=== PATIENT | female | born 1950 | race Hispanic/Latino ===

== ENCOUNTER 2017-12-30 19:53 | Emergency (ER) | payer OTHER ==
[2017-12-30] MEDS ORDERED: IBUPROFEN 600 MG TABLET ONE (20:06)
== END 2017-12-30 21:10 | disposition home or self-care (01) ==
LOC: EDH 19:53
DX: S80.01XA Contusion of right knee, initial encounter (principal); E11.9 Type 2 diabetes mellitus without complications; E78.5 Hyperlipidemia, unspecified; I10 Essential (primary) hypertension; Z90.49 Acquired absence of other specified parts of digestive tract; Z90.710 Acquired absence of both cervix and uterus; Z88.6 Allergy status to analgesic agent; W18.39XA Other fall on same level, initial encounter; Y93.89 Activity, other specified; Y92.89 Other specified places as the place of occurrence of the external cause; Y99.8 Other external cause status
CPT/HCPCS: 73562

== ENCOUNTER 2019-01-24 15:00 | Inpatient (IN) | payer OTHER ==
[~2019-01-24] VITALS: Ht 152.4 cm; Wt 79.8 kg
[2019-01-24 17:08] VITALS: BP 145/76
[2019-01-24 17:15] LABS: APPEARANCE,URINE Clear (CLEAR); BILIRUBIN,URINE Negative (NEGATIVE); COLOR,URINE Yellow (YELLOW); GLUCOSE, URINE (UA) Negative (NEGATIVE); KETONES,URINE Negative (NEGATIVE); LEUKOCYTE ESTERASE ,URINE Small (NEGATIVE); NITRATE,URINE Negative (NEGATIVE); OCCULT BLOOD,URINE Negative (NEGATIVE); PROTEIN,URINE Negative (NEGATIVE)
[2019-01-24] MEDS ORDERED: FLUT16H NASAL (17:33)
[2019-01-24] MEDS ORDERED: MONT10TA21 PO (17:33)
[2019-01-24] MEDS ORDERED: AMLO5TAB9 PO (17:33)
[2019-01-24] MEDS ORDERED: PANT40TA25 PO (17:33)
[2019-01-24] MEDS ORDERED: INSU300I SQ (17:33)
[2019-01-24] MEDS ORDERED: LISI-613 PO (17:33)
[2019-01-24] MEDS ORDERED: GLIP-196 PO (17:33)
[2019-01-24] MEDS ORDERED: FENO54TA6 PO (17:33)
[2019-01-24 17:40] LABS: BACTERIA,URINE Rare /HPF (None Seen); RBC,URINE 0-1 /HPF (0-1)
[2019-01-24 17:41] LABS: SQUAMOUS EPITHELIAL CELL,UR Few /HPF (0-2)
--- NOTE | 2019-01-24 19:38 | NUR ---
UA INFORMED DR. CORREA OF ABNORMAL UA. ORDERS RECEIVED TO HAVE PT RECEIVE ANCEF IN AM ALREADY ORDERED.
[2019-01-25] VITALS (19 sets, daily range): BP systolic 114–150; BP diastolic 60–87
--- NOTE | 2019-01-25 09:20 | NUR ---
POTENTIAL FOR INFECTION: NO SHAVING NEEDED TO RIGHT SHOULDER / UPPER ARM VOICED PER LI MCGILL. WIPED RIGHT SHOULDER / UPPER ARM WITH MARIO: 2% CHLORHEXIDINE GLUCONATE CLOTH PATIENTS PRE-OP SKIN PREP.
[2019-01-25] MEDS ORDERED: CEFAZOLIN SODIUM 1 GM VIAL ONE ×2 (10:20→17:06)
[2019-01-25] MEDS ORDERED: SODIUM CHLORIDE 0.9% 1000ML 1,000 ML IV ONE (10:21)
[2019-01-25] MEDS: CEFAZOLIN SODIUM 1 GM VIAL IVP ONE ×2 (10:30→16:45)
[2019-01-25] MEDS ORDERED: METF-446 PO (11:14)
[2019-01-25] MEDS ORDERED: MIDAZOLAM HCL 1 MG/ML 2ML VIAL ONE ×2 (14:59→16:05)
[2019-01-25] MEDS ORDERED: ACETAMINOPHEN EXTRA STRENGTH 500 MG TABLET ONE (15:01)
[2019-01-25] MEDS ORDERED: METOCLOPRAMIDE 10 MG/2 ML VIAL ONE (15:01)
[2019-01-25] MEDS ORDERED: CELECOXIB 200 MG CAP ONE (15:02)
[2019-01-25] MEDS ORDERED: KETOROLAC TROMETHAMINE 15MG/ML ONE (15:02)
[2019-01-25] MEDS ORDERED: OXYCODONE HCL 10 MG TAB.SR.12H PO ONE (15:03)
[2019-01-25] MEDS ORDERED: ONDANSETRON HCL 4 MG/2 ML VIAL ONE (16:05)
[2019-01-25] MEDS ORDERED: PROPOFOL 10 MG/ML 20ML VIAL IV ONE (16:05)
[2019-01-25] MEDS ORDERED: DEXAMETHASONE SOD PHOSPHATE 10MG/ML 1ML VIAL ONE (16:05)
[2019-01-25] MEDS ORDERED: LIDOCAINE PF 2% 5ML ABBOJECT ONE (16:05)
[2019-01-25] MEDS ORDERED: ROCURONIUM 10MG/1ML SYR 10 MG/ML ML ONE (16:06)
[2019-01-25] MEDS ORDERED: FENTANYL CITRATE PF 50 MCG/1 ML 2ML VIAL ONE ×2 (16:06→17:25)
[2019-01-25] MEDS ORDERED: ROPIVACAINE 0.5% 5MG/ML 30ML IJ ONE (16:10)
[2019-01-25] MEDS ORDERED: EPHEDRINE SULFATE 50 MG/ML AMPULE ONE (16:41)
[2019-01-25] MEDS: TRANEXAMIC ACID 1000MG/10ML IV ONE ×2 (17:00→19:45)
[2019-01-25] MEDS ORDERED: GLYCOPYRROLATE 1 MG/5 ML SYRINGE ONE (19:11)
[2019-01-25] MEDS ORDERED: NEOSTIGMINE 5MG/5ML SYR IV ONE (19:12)
[2019-01-25] MEDS ORDERED: POTASSIUM CHLORIDE 20 MEQ ERTAB PO PRN (19:15)
[2019-01-25] MEDS ORDERED: FE FUMARATE/FA/MV, MIN COMB#15 1 TAB PO PRN (19:15)
[2019-01-25] MEDS ORDERED: TRAMADOL HCL 50 MG TABLET PO PRN (19:15)
[2019-01-25] MEDS ORDERED: POTASSIUM CHLORIDE 20MEQ/100ML 100 ML IV PRN (19:15)
[2019-01-25] MEDS ORDERED: DiphenhydrAMINE HCL 50 MG/ML VIAL IVP PRN (19:15)
[2019-01-25] MEDS: ACETAMINOPHEN EXTRA STRENGTH 500 MG TABLET PO SCH (19:15)
[2019-01-25] MEDS ORDERED: TEMAZEPAM 15 MG CAPSULE PO PRN (19:15)
[2019-01-25] MEDS ORDERED: LIDOCAINE HCL-MPF 1% 2ML VIAL IVP PRN (19:15)
[2019-01-25] MEDS ORDERED: POTASSIUM CHLORIDE 10% ELIXIR 20 MEQ/15 ML UDCUP PO PRN (19:15)
[2019-01-25] MEDS ORDERED: OXYCODONE HCL 5 MG TAB PO PRN (19:15)
[2019-01-25] MEDS: PREGABALIN 25 MG CAP PO SCH (21:00)
[2019-01-25] MEDS: FAMOTIDINE 20MG TAB 20 MG TAB PO SCH (21:00)
[2019-01-25] MEDS: CELECOXIB 200 MG CAP PO SCH (21:00)
[2019-01-25] MEDS: ASPIRIN 325 MG TABLET PO SCH (21:00)
[2019-01-25] MEDS: ONDANSETRON HCL 4 MG/2 ML VIAL IVP PRN (22:10)
--- NOTE | 2019-01-25 22:10 | NUR ---
nausea c/o nausea, no vomiting zofran 4 mg ivp given slowly, tolerated well
--- NOTE | 2019-01-25 23:00 | NUR ---
med effect nausea subsiding, continue with ivf as ordered, voiding per bedpan clear yellow urine
[2019-01-26] VITALS (8 sets, daily range): BP systolic 103–126; BP diastolic 55–87
[2019-01-26] MEDS: CEFAZOLIN SODIUM 1 GM VIAL IVP SCH ×2 (00:20→09:45)
[2019-01-26] MEDS: SODIUM CHLORIDE 0.9% 1000ML 1,000 ML IV SCH ×3 (00:21→15:11)
[2019-01-26] MEDS: ACETAMINOPHEN EXTRA STRENGTH 500 MG TABLET PO SCH ×3 (04:26→20:10)
[2019-01-26 05:14] LABS: HEMATOCRIT 35.3 % (36-48); MEAN CORPUSCULAR HEMOGLOBIN 29.1 pg (27.0-33.0); MEAN CORPUSCULAR HGB CONC 33.7 g/dL (32.0-36.0); MEAN CORPUSCULAR VOLUME 86.3 fL (79-99); NUCLEATED RED BLOOD CELLS 0.1 % (0.0-0.19); PLATELET COUNT (AUTO) 192 K/uL (130-400); RED BLOOD CELL COUNT(AUTO) 4.09 MIL/uL (4.00-5.50); RED CELL DISTRIBUTION WIDTH 13.6 % (11.0-15.5); WHITE BLOOD COUNT (AUTO) 10.1 K/uL (4.8-10.8)
[2019-01-26 05:24] LABS: CREATININE 0.8 mg/dL (0.5-1.5)
[2019-01-26] MEDS: INSULIN HUMULIN R 100 UNIT/ML 3ML SQ SCH ×4 (06:28→20:11)
[2019-01-26] MEDS: INSULIN GLARGINE 100 UNITS/ML 10 ML VIAL SQ SCH (09:29)
[2019-01-26] MEDS: ASPIRIN 325 MG TABLET PO SCH ×2 (09:30→20:10)
[2019-01-26] MEDS: CELECOXIB 200 MG CAP PO SCH ×2 (09:30→20:11)
[2019-01-26] MEDS: PREGABALIN 25 MG CAP PO SCH ×2 (09:30→20:10)
[2019-01-26] MEDS: PANTOPRAZOLE SODIUM 40 MG TABLET.DR PO SCH (09:32)
[2019-01-26] MEDS: LISINOPRIL 20 MG TABLET PO SCH (09:33)
[2019-01-26] MEDS: FAMOTIDINE 20MG TAB 20 MG TAB PO SCH ×2 (09:33→20:10)
[2019-01-26] MEDS: GLIPIZIDE XL 10MG TAB PO SCH (09:33)
[2019-01-26] MEDS ORDERED: CEFAZOLIN SODIUM 1 GM VIAL ONE (09:36)
[2019-01-26] MEDS: OXYCODONE HCL 5 MG TAB PO PRN ×2 (09:46→17:29)
[2019-01-26] MEDS: FLUTICASONE PROPIONATE 50MCG/SPRAY 16 GM BOTTLE EN SCH (10:08)
[2019-01-26] MEDS: POLYETHYLENE GLYCOL 3350 17 GM POWD.PACK PO SCH (12:14)
[2019-01-26] MEDS: CALCIUM CARBONATE 500 MG TABLET PO PRN ×2 (12:15→21:43)
--- NOTE | 2019-01-26 13:00 | NUR ---
INITIAL AND REFERRAL MET W PT AND JULES- PT UP FOR PTX SESSION, S/P SHOULDER SURGERY. LIVES W SPOUSE, PREVIOUSLY INDEPENDENT,NO DME, PLAN IS FOR , KATJA SIGNED FOR [facility] ORDERED, WILL SEND REFERRAL Addendum: 01/26/19 at 1637 by TAY CONTRERAS RN Amended: Links added.
--- NOTE | 2019-01-26 16:37 | NUR ---
NOT IN NETWORK W [facility] REFERRAL SENT TO [facility], DR. CORREA ADVISED. Addendum: 01/26/19 at 1638 by TAY CONTRERAS RN CM Amended: Links added.
[2019-01-26] MEDS ORDERED: **HM** FENOFIBRATE 54MG PO SCH (21:00)
[2019-01-26] MEDS ORDERED: AMLODIPINE BESYLATE 5 MG TAB PO SCH (21:00)
[2019-01-26] MEDS ORDERED: METFORMIN HCL 500 MG TABLET PO SCH (21:00)
[2019-01-26] MEDS ORDERED: MONTELUKAST SODIUM 10 MG TAB PO SCH (21:00)
[2019-01-26] MEDS: KETOROLAC TROMETHAMINE 15MG/ML IV PRN (21:08)
[2019-01-27] VITALS: BP 108/63
[2019-01-27] MEDS: ACETAMINOPHEN EXTRA STRENGTH 500 MG TABLET PO SCH ×2 (03:47→12:18)
[2019-01-27 04:00] VITALS: BP 117/72
[2019-01-27] MEDS: INSULIN HUMULIN R 100 UNIT/ML 3ML SQ SCH ×3 (05:45→16:30)
[2019-01-27 07:44] VITALS: BP 119/64
[2019-01-27] MEDS: INSULIN GLARGINE 100 UNITS/ML 10 ML VIAL SQ SCH (07:54)
[2019-01-27] MEDS: POLYETHYLENE GLYCOL 3350 17 GM POWD.PACK PO SCH (08:16)
[2019-01-27] MEDS: OXYCODONE HCL 5 MG TAB PO PRN ×2 (08:16→16:42)
[2019-01-27] MEDS: CELECOXIB 200 MG CAP PO SCH (08:17)
[2019-01-27] MEDS: PANTOPRAZOLE SODIUM 40 MG TABLET.DR PO SCH (08:18)
[2019-01-27] MEDS: FAMOTIDINE 20MG TAB 20 MG TAB PO SCH (08:18)
[2019-01-27] MEDS: ASPIRIN 325 MG TABLET PO SCH (08:18)
[2019-01-27] MEDS: PREGABALIN 25 MG CAP PO SCH (08:18)
[2019-01-27] MEDS: GLIPIZIDE XL 10MG TAB PO SCH (08:19)
[2019-01-27] MEDS: LISINOPRIL 20 MG TABLET PO SCH (08:36)
[2019-01-27] MEDS: FLUTICASONE PROPIONATE 50MCG/SPRAY 16 GM BOTTLE EN SCH (09:00)
[2019-01-27 11:14] VITALS: BP 137/73
--- NOTE | 2019-01-27 12:58 | NUR ---
HOME HEALTH SET UP DIFFICULTIES ADVISED BY [facility] THEY ARE NOT IN NETWORK. CALL TO INSURANCE, GIVEN NUMBER/NAME OF [facility] FOR HOME HEALTH REFERRAL SENT . CALL BACK FROM [facility] - THEY SAY THEY ARE A OUT PT REHAB CENTER AND DO NOT DO HOME HEALTH CALL MADE BACK TO [facility] SPOKE TO ROBERT ASKED FOR HOME HEALTH IN NETWORK IN [facility] . CALLED THE TWO NUMBERS GIVEN- UNABLE TO SERVICE THE PATIENT, ONE IS ONLY OUTPATIENT [facility], THE OTHER NO LONGER DOES HH. ADIVSED DR. CORREA OF THIS. ORDER FOR [facility] ON [address] [phone]. CALL TO [facility], APPT FOR WEDNESDAY AT 3 PM. ADDRESS OHONE NUMBER AND APPT TIME LEFT ON ORANGE SHEET ON CHART. YAHIR LING UP TO DATE. Addendum: 01/27/19 at 1351 by TAY CONTRERAS RN CM Amended: Links added.
[2019-01-27] MEDS ORDERED: HYDR-4457 PO (14:17)
[2019-01-27] MEDS: ONDANSETRON HCL 4 MG/2 ML VIAL IVP PRN (14:33)
[2019-01-27] MEDS: KETOROLAC TROMETHAMINE 15MG/ML IV PRN (14:42)
[2019-01-27 16:05] VITALS: BP 115/60
--- NOTE | 2019-01-27 17:23 | NUR ---
DISCHARGE REMOVED RIGHT SHOULDER HEMOVAC DRAIN, DRAIN TIP INTACT. COVERED DRAIN INSERTION SITE WITH BANDAGE. PERFORMED RIGHT SHOULD INCISION DRESSING CHANGE. RIGHT SHOULDER INCISION SITE APPROXIMATED, CLOSED WITH DERMABOND. BRUISING NOTED AROUND INCISION SITE. NO DRAINAGE NOTED FROM INCISION SITE. CLEANSED RIGHT SHOULDER INCISION WITH BETADINE, COVERED WITH NON-ADHERENT GAUZE, SECURED WITH MEDIPORE TAPE. APPLIED TEGADERM DRESSING OVER RIGHT SHOULDER DRESSING. REMOVED 20G IV FROM LEFT FA, CATHETER TIP INTACT. TEACHBACK METHOD USED TO PROVIDE DISCHARGE INSTRUCTIONS (RX GRAEME, F/U APPT, DISCHARGE INSTRUCTIONS). INFORMED PATIENT OF SCHEDULED APPT AT [facility], PHONE NUMBER AND APPT TIME/DATE PROVIDED TO PATIENT. PATIENT VERBALIZED UNDERSTANDING OF DISCHARGE TEACHING. PATIENT TO BE DRIVEN HOME BY HER .
[2019-01-28] MEDS ORDERED: BISACODYL 10 MG SUPP.RECT RC PRN (19:15)
== END 2019-01-27 17:46 | disposition home or self-care (01) | DRG 483 ==
LOC: EDSTATUS 15:00 → DAHIP 01-25 08:30 → 4BH 01-25 20:30
PROVIDERS: ADMIT Orthopaedic Surgery; ATTEND Orthopaedic Surgery
PROC: 0RRJ00Z Replacement of Right Shoulder Joint with Reverse Ball and Socket Synthetic Substitute, Open Approach (ICD-10-PCS; principal; 2019-01-25 11:45)
PROC: 3E0T3BZ Introduction of Anesthetic Agent into Peripheral Nerves and Plexi, Percutaneous Approach (ICD-10-PCS; 2019-01-25 11:45)
DX: M75.101 Unspecified rotator cuff tear or rupture of right shoulder, not specified as traumatic (principal); M19.011 Primary osteoarthritis, right shoulder; E11.9 Type 2 diabetes mellitus without complications; E78.00 Pure hypercholesterolemia, unspecified; I10 Essential (primary) hypertension; G89.29 Other chronic pain; Z82.49 Family history of ischemic heart disease and other diseases of the circulatory system
CPT/HCPCS: 36415; 73020; 80048; 81001; 82948; 85027; 87641; 96374; 96375; A4565; G0378; J0690; J1100; J1815; J1885; J2001; J2250; J2405; J2704; J2710; J2765; J2795; J3010; J3490; J7030; J7120

== ENCOUNTER 2019-12-05 21:32 | Emergency (ER) | payer OTHER, MEDICARE ==
[~2019-12-05 21:32] MED LIST: AMLO5TAB9 PO; FENO54TA6 PO; FLUT16H NASAL; GLIP-196 PO; HYDR-4457 PO; INSU300I SQ; LISI-613 PO; METF-446 PO; MONT10TA21 PO; PANT40TA25 PO
[2019-12-05] MEDS ORDERED: ONDANSETRON HCL 4 MG/2 ML VIAL ONE (21:40)
[2019-12-05] MEDS ORDERED: KETOROLAC TROMETHAMINE 15MG/ML ONE (21:40)
[2019-12-05] MEDS ORDERED: MORPHINE SULFATE 4 MG/1ML SYG ONE (21:41)
[2019-12-05] MEDS ORDERED: ETOMIDATE 2 MG/ML 10 ML VIAL ONE (22:32)
== END 2019-12-06 00:07 | disposition home or self-care (01) ==
LOC: EDH 21:32
DX: S43.005A Unspecified dislocation of left shoulder joint, initial encounter (principal); E11.9 Type 2 diabetes mellitus without complications; E78.5 Hyperlipidemia, unspecified; I10 Essential (primary) hypertension; Z90.49 Acquired absence of other specified parts of digestive tract; Z90.710 Acquired absence of both cervix and uterus; Z98.890 Other specified postprocedural states; Z88.2 Allergy status to sulfonamides; W01.198A Fall on same level from slipping, tripping and stumbling with subsequent striking against other object, initial encounter; Y93.A1 Activity, exercise machines primarily for cardiorespiratory conditioning; Y92.89 Other specified places as the place of occurrence of the external cause; Y99.8 Other external cause status
CPT/HCPCS: 23650; 73030 ×2; 96374; 96375; 99285; J1885; J2270; J2405; J3490; 99151; 99152

== ENCOUNTER 2022-06-24 17:56 | Inpatient (IN) | payer OTHER ==
[~2022-06-24] VITALS: Ht 152.4 cm; Wt 72.0 kg
[~2022-06-24 17:56] MED LIST changes: +AMLO-257 PO; -AMLO5TAB9 PO; -LISI-613 PO; +LISI20TA24 PO; -PANT40TA25 PO; +PANT40TA54 PO
[2022-06-24] MEDS ORDERED: MEROPENEM 1 GM VIAL IVP STA (19:27)
[2022-06-24] MEDS ORDERED: ONDANSETRON 4MG INJ IV PRN (20:00)
[2022-06-24] MEDS ORDERED: ACETAMINOPHEN 325 MG TAB PO PRN ×2 (20:00)
[2022-06-24] MEDS ORDERED: 0.9%NACL 1000ML 1,000 ML IV ONE (20:00)
[2022-06-24] MEDS ORDERED: LACTULOSE 20 GM/30 ML UDCUP PO PRN (20:00)
[2022-06-24] MEDS: MEROPENEM 500 MG VIAL IV SCH (20:00)
[2022-06-24 20:16] LABS: BASOPHILS % (AUTO) 0.4 % (0.0-5.0); EOSINOPHILS % (AUTO) 0.8 % (0.0-8.0); HEMATOCRIT 38.3 % (36-48); MEAN CORPUSCULAR HGB CONC 33.2 g/dL (32.0-36.0); MEAN CORPUSCULAR VOLUME 84.5 fL (79-99); MONOCYTES % (AUTO) 6.3 % (3.0-13.0); PLATELET COUNT (AUTO) 233 K/uL (130-400); RED BLOOD CELL COUNT(AUTO) 4.53 MIL/uL (4.00-5.50); RED CELL DISTRIBUTION WIDTH 13.7 % (11.0-15.5); WHITE BLOOD COUNT (AUTO) 8.3 K/uL (4.8-10.8)
[2022-06-24 20:26] LABS: CREATININE 0.7 mg/dL (0.5-1.5); POTASSIUM 4.7 mmol/L (3.5-5.1)
[2022-06-24 20:31] LABS: ALBUMIN 3.5 g/dL (3.5-5.0); TOTAL PROTEIN, SERUM 7.4 g/dL (6.0-8.3)
[2022-06-24] MEDS: INSULIN HUMULIN R 100 UNIT/ML 3ML SQ SCH (21:00)
[2022-06-24] MEDS: 0.9%NACL 1000ML 1,000 ML IV SCH (21:12)
[2022-06-24] MEDS ORDERED: AMLO-257 PO (21:21)
[2022-06-24] MEDS ORDERED: SEMA1PEN3 SQ (21:21)
[2022-06-24] MEDS ORDERED: LISI20TA24 PO (21:21)
[2022-06-24 22:41] VITALS: BP 142/67
[2022-06-24 23:34] VITALS: BP 142/67
[2022-06-25 04:00] VITALS: BP 126/64
[2022-06-25] MEDS: MEROPENEM 500 MG VIAL IV SCH (04:09)
[2022-06-25] MEDS: INSULIN HUMULIN R 100 UNIT/ML 3ML SQ SCH (06:04)
[2022-06-25 07:30] VITALS: BP 132/64
[2022-06-25] MEDS ORDERED: PANTOPRAZOLE 40 MG TAB DR PO SCH (09:00)
[2022-06-25] MEDS: 0.9%NACL 1000ML 1,000 ML IV SCH (10:20)
[2022-06-25 11:00] VITALS: BP 125/62
== END 2022-06-25 12:30 | disposition left against medical advice (07) | DRG 690 ==
LOC: EDH 17:56 → EDHIP 19:42 → 3BH 22:38
PROVIDERS: ADMIT Hospitalist; ATTEND Hospitalist
DX: N39.0 Urinary tract infection, site not specified (principal); E87.20 Acidosis, unspecified; B96.1 Klebsiella pneumoniae [K. pneumoniae] as the cause of diseases classified elsewhere; E11.9 Type 2 diabetes mellitus without complications; I10 Essential (primary) hypertension; Z83.3 Family history of diabetes mellitus; Z90.710 Acquired absence of both cervix and uterus
CPT/HCPCS: 36415; 80053; 82550; 82948; 83605; 84484; 85025; 87040; G0378; J2185; J7030